=== PATIENT | male | born 1980 | race American Indian/Alaskan Native ===

== ENCOUNTER 2016-09-08 01:31 | Emergency (ER) | payer SELFPAY ==
[2016-09-08 01:44] VITALS: BP 125/92
[2016-09-08] MEDS ORDERED: NORCO 5/325 PO ONE (07:05)
[2016-09-08] MEDS ORDERED: XYLOCAINE 1% 20 mL INFILTRATI ONE (07:53)
--- NOTE | 2016-09-08 08:01 | Emergency Department Report ---
ED Laceration HPI - HPI Chief Complaint: Laceration/Recheck/Suture Stated Complaint: LAC LT HAND Time Seen by Provider: 09/08/16 07:03 Other History: 36-year-old -[place] male comes in for laceration to his left thumb and hand. Patient reports that he was struggling with his son with a barbecue brush with them still bristles and cut his hand on them. He voices no other past medical history. ED Review of Systems ROS: Stated complaint: LAC LT HAND Other details as noted in HPI Constitutional: denies: chills, fever Eyes: denies: eye pain, eye discharge, vision change ENT: denies: ear pain, throat pain Respiratory: denies: cough, shortness of breath, wheezing Cardiovascular: denies: chest pain, palpitations Endocrine: no symptoms reported Gastrointestinal: denies: abdominal pain, nausea, diarrhea Genitourinary: denies: urgency, dysuria Musculoskeletal: denies: back pain, joint swelling, arthralgia Skin: as per HPI Neurological: denies: headache, weakness, paresthesias Psychiatric: denies: anxiety, depression Hematological/Lymphatic: denies: easy bleeding, easy bruising ED Past Medical Hx - Past Medical History Previous Medical History?: No - Surgical History Past Surgical History?: No - Social History Smoking Status: Current Every Day Smoker Substance Use Type: Alcohol - Medications Home Medications: Home Medications Medication Instructions Recorded Confirmed Last Taken Type Cephalexin [Keflex] 500 mg PO QID #40 capsule 09/08/16 Unknown Rx Laceration Physical Exam - Exam General: Vital signs noted. No distress. Alert and acting appropriately. Wound Length (cm): 2 (three separate lac 1,1,1.5 cm) Laceration Location: Upper Extremity Laceration Exam: Yes Normal Distal CMS, No Foreign Body, No Exposed Tendon, Vessel, or Nerve, No Tendon Injury ED Course Vital Signs 09/08/16 09/08/16 01:39 02:02 Temperature 98.8 F 98.8 F Pulse Rate 100 H 98 H Respiratory 20 16 Rate Blood Pressure 125/92 Blood Pressure 125/92 [Right] O2 Sat by Pulse 987 H 98 Oximetry - Laceration /Wound Repair Left Hand Wound Location: upper extremity Wound Length (cm): 1 (1,1,1.5 cm lacerations) Wound's Depth, Shape: superficial Wound Explored: clean Irrigated w/ Saline (ccs): 60 Betadine Prep?: Yes Anesthesia: 1% Lidocaine Volume Anesthetic (ccs): 6 Wound Debrided: minimal Wound Repaired With: sutures Suture Size/Type: 5:0, proline Number of Sutures: 11 Layer Closure?: No Sterile Dressing Applied?: Yes Progress: Patient tolerated procedure well. ED Medical Decision Making - Medical Decision Making Patient has been evaluated by this provider in fast track. Discussed with patient that we will need to suture his laceration for proper healing. Discussed with patient that we will place him on antibiotics for 7 days. Also discussed the patient that he will need a tetanus booster since has been greater than 5 years. Discussed the patient he will need to return back in 10- 14 days for suture removal. Patient verbalized understanding. Critical care attestation.: If time is entered above; I have spent that time in minutes in the direct care of this critically ill patient, excluding procedure time. ED Disposition Clinical Impression: Laceration of hand Qualifiers: Encounter type: initial encounter Foreign body presence: without foreign body Laterality: left Qualified Code(s): S61.412A - Laceration without foreign body of left hand, initial encounter Laceration of thumb Qualifiers: Encounter type: initial encounter Laterality: left Qualified Code(s): S61.012A - Laceration without foreign body of left thumb without damage to nail, initial encounter Disposition: DISCHARGED TO HOME OR SELFCARE Is pt being admited?: No Does the pt Need Aspirin: No Condition: Stable Instructions: Suture Care (ED), Laceration (ED), Finger Laceration (ED) Additional Instructions: Please keep wound clean and dry. Complete all antibiotics as prescribed. Return back to the emergency room within 10-14 days for suture removal. He can take Tylenol or Motrin for pain management. Return sooner if any signs of infection such as fever and the hand purulent discharge swelling fever. Prescriptions: Cephalexin [Keflex] 500 mg PO QID #40 capsule Referrals: PRIMARY CARE, [Primary Care Provider] - 3-5 Days Forms: Work/School Release Form(ED)
[2016-09-08] MEDS ORDERED: BOOSTRIX IM ONE (08:26)
== END 2016-09-08 08:52 | disposition home or self-care (01) ==
LOC: ED 01:31
DX: S61.412A Laceration without foreign body of left hand, initial encounter (principal); S61.012A Laceration without foreign body of left thumb without damage to nail, initial encounter; W45.8XXA Other foreign body or object entering through skin, initial encounter; Y93.89 Activity, other specified; Y92.89 Other specified places as the place of occurrence of the external cause; Y99.8 Other external cause status
CPT/HCPCS: 90471; 90715